=== PATIENT | female | born 1965 | race African-American/Black ===

== ENCOUNTER 2019-11-23 22:13 | Emergency (ER) | payer OTHER, MEDICAID ==
[~2019-11-23] VITALS: Ht 157.5 cm; Wt 63.1 kg
[2019-11-24] MEDS ORDERED: PROCHLORPERAZINE 10MG/2ML VIAL IM ONE (00:45)
[2019-11-24] MEDS ORDERED: DIPHENHYDRAMINE 50MG/ML VIAL IM ONE (00:45)
[2019-11-24] MEDS ORDERED: KETOROLAC 30MG/ML VIAL IM ONE (00:45)
[2019-11-24 01:19] VITALS: BP 124/73
== END 2019-11-24 03:37 | disposition home or self-care (01) ==
LOC: ER 22:13
DX: R51 Headache (principal); Z78.0 Asymptomatic menopausal state; G47.00 Insomnia, unspecified
CPT/HCPCS: 96372; 99284; J0780; J1200; J1885

== ENCOUNTER 2025-02-16 12:23 | Emergency (ER) | payer MEDICAID, MEDICARE, OTHER ==
[~2025-02-16] VITALS: Ht 158.8 cm; Wt 54.0 kg
[2025-02-16 12:31] VITALS: O2SAT 99
[2025-02-16] MEDS: KETOROLAC 30MG/ML VIAL IM ONE (12:58)
[2025-02-16] MEDS ORDERED: IBUP-2028 MT (13:49)
[2025-02-16] MEDS ORDERED: ACET-2708 MT (13:49)
[2025-02-16 14:51] VITALS: BP 125/56; PULSE 82; RESP 18; TEMP 37; O2SAT 99
== END 2025-02-16 14:52 | disposition home or self-care (01) ==
LOC: ER 12:23
DX: S82.832A Other fracture of upper and lower end of left fibula, initial encounter for closed fracture (principal); W18.30XA Fall on same level, unspecified, initial encounter; Y93.89 Activity, other specified; Y92.89 Other specified places as the place of occurrence of the external cause; Y99.8 Other external cause status
CPT/HCPCS: 99283; 29515; 73610; 96372; J1885; A6449